=== PATIENT | female | born 1940 | race Caucasian/White ===

== ENCOUNTER → 2023-11-06 08:23 | Outpatient (REF) | payer MEDICARE, OTHER, SELFPAY ==
[2023-11-06 09:23] LABS: Hematocrit 37.8 % (37.0-47.0); Hemoglobin 12.5 g/dL (12.0-16.0); Mean Corp Hgb Conc. 33.1 g/dL (33.0-37.0); Mean Corpuscular Hgb 31.6 pg (27.0-31.0); Mean Corpuscular Volume 95.5 fL (81.0-99.0); Mean Platelet Volume 9.8 fL (7.4-10.4); Platelet Count 235 10^3/uL (130-400); Red Blood Cell Count 3.96 10^6/uL (4.20-5.40); Red Cell Dist. Width 12.1 % (11.5-14.5)
[2023-11-06 10:00] LABS: Blood Urea Nitrogen 14 mg/dl (7-17); Calcium 9.7 mg/dl (8.4-10.2); Carbon Dioxide 27 mmol/L (22-30); Chloride 105 mmol/L (98-107); Glucose 88 mg/dl (70-99); Potassium 4.8 mmol/L (3.5-5.1); Sodium 135 mmol/L (135-145); eGFR > 60.00
== END ==
LOC: SDSPAT 08:23
PROVIDERS: ATTENDING PHYSICIAN Surgery; FAMILY PHYSICIAN Family Medicine
DX: Z01.818 Encounter for other preprocedural examination (principal)
CPT/HCPCS: 36415; 80048; 85027; 93005

== ENCOUNTER 2023-11-18 06:19 | Day surgery (SDC) | payer MEDICARE, OTHER, SELFPAY ==
[2023-11-06 08:42] VITALS: BMI 24.9
[2023-11-18] VITALS (10 sets, daily range): BP systolic 108–129; BP diastolic 54–69; BMI 24.9
--- NOTE | 2023-11-18 07:12 | HP.FOC2 ---
Focused History & Physical
Chief Complaint
HPI:
Chief Complaint: Right inguinal hernia
HPI / Indication for Planned Procedure: Patient is an 83-year-old female with a known history of a right inguinal hernia which she has been following expectantly. It is a bit more protuberant and slightly larger than previously. She now has a
awareness of the hernia being present on a daily basis and occasional discomfort.
Relevant Past Medical History: Other (Hypercholesterolemia, diverticulosis, colon polyps, benign left breast lump, hemorrhoids, herniated disc, M [employer])
Relevant Social History: Negative
Relevant Family History: Negative
Relevant Past Surgical History: Positive for (Benign left breast biopsy, ROMMEL/BSO)
Review of Systems
Review of Pertinent Systems: All Systems Negative
Medication
See Medication form for detailed medications: Yes
Medication List (including Herbals & OTC):
Calcium 600 + D(3) 1 tab PO DAILY 11/13/23
alendronate 70 mg tablet 70 mg PO QWEEK 11/13/23
atorvastatin 10 mg tablet 10 mg PO DAILY 11/13/23
famotidine 20 mg tablet 20 mg PO DAILY 11/13/23
Medications Reviewed: Yes
Allergies and Reactions
Patient has Allergies: No
Noted Allergies and Reactions:
Allergy/AdvReac Type Severity Reaction Status Date / Time
No Known Allergies Allergy Verified 11/28/17 13:00
Pertinent Physical Exam
All Other Systems: Negative
Head/Neck: Normal
Lungs: Normal
Heart: Normal
Abdomen: Other (Reducible right inguinal hernia)
Extremities: Normal
Neurological: Normal
Diagnosis / Assessment
Patient is an 83-year-old female presenting for scheduled operative correction symptomatic right inguinal hernia
Plan / Procedure
Robotic assisted laparoscopic repair of right inguinal hernia with mesh
Anesthesia/Sedation to be done by Anesthesia Provider: Yes
[2023-11-18] MEDS: NORMOSOL-R/PLASMALYTE-A 1000 IV (09:30)
[2023-11-18] MEDS: TYLENOL 1000 MG PO (09:31)
--- NOTE | 2023-11-18 11:00 | W.SUR.PREOP ---
Pre-Operative Surgical Note
-
I have examined this patient prior to the performance of the scheduled procedure.
The patient's condition is unchanged from the time of the current History and
Physical and the patient is able to undergo the scheduled procedure.
--- NOTE | 2023-11-18 13:37 | W.IMMPOSTOP ---
Addendum entered and electronically signed by Roman Young MD 11/18/23 13:51:
#[id number]
Original Note:
Surgical Immed Post Op Note
-
Primary Surgeon: Hector
Assisting Surgeon: Jorge L Gatica PGY 1
Pre-op Diagnosis: RIH
Post-op Diagnosis: RIH; incidental cyst of the appendix
Procedure Performed: RAL JIGNESH RIH repair with mesh; 3d max large mid wt; RAL appendectomy
Anesthesia Type: GETA + 0.25% Marcaine
Specimen / Cultures: Appendix
Estimated Blood Loss: 6 mL
Complications: None immediate
Operative Findings: Right indirect inguinal hernia. Transabdominal preperitoneal repair; 3D max large mid weight mesh. Incidental appendiceal cystic mass noted within mid appendix. Appendectomy completed without disruption of appendix after
inguinal herniorrhaphy and specimen sent for routine pathology. Base taken flush with the cecum utilizing a 0 PDS Endoloop and inverting stump with 2-0 Vicryl.
[2023-11-18] MEDS: DILAUDID 0.25 MG IV (14:33)
== END 2023-11-18 15:30 | disposition home or self-care (01) ==
LOC: SDS 06:19
PROVIDERS: ATTENDING PHYSICIAN Surgery
DX: K40.90 Unilateral inguinal hernia, without obstruction or gangrene, not specified as recurrent (principal); D37.3 Neoplasm of uncertain behavior of appendix
CPT/HCPCS: 49650; 88304; C1781

== ENCOUNTER 2023-11-20 02:20 | Inpatient (IN) | payer MEDICARE, OTHER, SELFPAY ==
[2023-11-19 21:20] VITALS: BP 160/90
[2023-11-19] MEDS: NSS 1000 IV (21:41)
[2023-11-19] MEDS: ZOFRAN 4 MG IV (21:46)
--- NOTE | 2023-11-19 21:46 | ED.GENMED ---
History of Present Illness
General
Chief Complaint: Abdominal Symptoms
Time Seen by Provider: 11/19/23 21:33
Travel History
Have you had any contact with someone who has COVID-19?: No
Do you have any symptoms of coronavirus? Fever > 100 degrees, chills, cough, shortness of breath, sore throat, loss of taste or smell, muscle aches, or headache?: No
History of Present Illness
History of Present Illness:
82-year-old female presents to the emergency department for evaluation of intractable vomiting developing this morning. She underwent routine outpatient hernia repair laparoscopically subsequently went appendectomy during the same procedure. She
was discharged yesterday in stable addition. States she has had previous reactions to general anesthesia with delayed vomiting in the past. Denies any abdominal pain
Review of Systems
Review of Systems
Allergies reviewed?: Yes
All Other Systems: ROS reviewed and negative except as documented in HPI and ROS
Phy Exam
Physical Exam
Physical Exam:
GEN: Well appearing, NAD, WDWN
HEENT: Oral mucosa moist, no scleral icterus
Cardiac: Regular rate
Lung: No respiratory distress, no tachypnea
Abdomen: Soft, nontender. Well-approximated laparoscopic incisional sites without dehiscence or discharge
MSK: No gross deformity or injuries
Skin: Good color, no pallor or jaundice, no rashes
Neuro: AO x3, moves all extremities freely
Psych: Calm, cooperative
Course
Orders/Labs/Results
Orders:
Orders
11/19/23 21:37
0.9% Sodium Chloride 1000 ml [Nss] 1,000 ml IV BOLUS
Ondansetron Injectable [Zofran] 4 mg IV NOW STA
11/19/23 21:40
Complete Blood Count/No Diff Urgent
Comprehensive Metabolic Panel Urgent
Serum Osmolality Urgent
Comment: ADD ON
11/19/23 22:16
Add On- LAB Urgent
Tests Added?: serum osmolality
11/19/23 22:56
Metoclopramide [Reglan] 10 mg .ROUTE .STK-MED ONE
11/19/23 22:58
Metoclopramide [Reglan] 10 mg IV NOW STA
11/19/23 23:14
Diphenhydramine [Benadryl] 50 mg .ROUTE .STK-MED ONE
11/19/23 23:15
Diphenhydramine [Benadryl] 12.5 mg IV NOW STA
11/19/23 23:32
Osmolality, Random Urine Urgent
Date Specimen was Collected: 11/19/23
Time Specimen was Collected: 23:30
Urinalysis Reflex To Culture Urgent
Date Specimen was Collected: 11/19/23
Time Specimen was Collected: 23:30
Urine Microscopic Reflex Cult Urgent
Urine Sodium Urgent
Date Specimen was Collected: 11/19/23
Time Specimen was Collected: 23:30
Abnormal Lab Results
11/19/23 11/19/23
21:40 23:32
WBC 12.0 H 10^3/uL
(4.8-10.8)
RBC 3.79 L 10^6/uL
(4.20-5.40)
Hct 33.0 L %
(37.0-47.0)
MCH 31.7 H pg
(27.0-31.0)
Sodium 120 L mmol/L
(135-145)
Chloride 91 L mmol/L
(98-107)
Carbon Dioxide 20 L mmol/L
(22-30)
Glucose 125 H mg/dl
(70-99)
Serum Osmolality 256 L mOsm/kg
(275-300)
Urine Ketones 1+ A
(Negative)
Ur Occult Blood Reflex Trace A
(Negative)
Urine RBC 3-6 A /HPF
(0-2)
Urine Bacteria (Reflex) Few A
(Negative)
11/19/23 21:40
11/19/23 21:40
Vital Signs
Initial and Last Documented VS:
Initial Vital Signs
Temp Pulse Resp BP Pulse Ox
98.1 F 84 20 160/90 97
11/19/23 21:20 11/19/23 21:20 11/19/23 21:20 11/19/23 21:20 11/19/23 21:20
Last Documented Vital Signs
Temp Pulse Resp BP Pulse Ox
98.1 F 75 16 160/81 98
11/19/23 21:20 11/19/23 23:15 11/19/23 23:15 11/19/23 23:00 11/19/23 23:15
MDM/Problems Addressed
MDM/Problems Addressed:
Patient noted to be complete hyponatremic which is likely hypovolemic on the basis of vomiting. She does not drink alcohol there is no history suggestive polydipsia. Prior sodium from preoperative screening labs was 135. I discussed the patient's
labs with nephrology who requested we start 3% saline infusion at 25 cc, every 4 hours BMPs, with a goal sodium of 123 to 124 by AM. Patient will be admitted to the hospital service
*Critical Care Note
Total Time (30-74mins, 75-104mins- exclusive of procedures): Not Applicable
ED Attending Note
-
Portions of this chart may have been created with voice recognition software.� Occasional wrong word or��sound alike� substitutions may have occurred due to the inherent limitations of voice recognition software.
Discharge Plan
Departure
Patient Disposition: Admit
Date of Disposition: 11/20/23
Time of Disposition: 00:26
Admit to: Med/Surg
Presentation/result/management discussed w/ accepting MD/DO: Hospitalist
Discharge Problem:
Acute hyponatremia
Prescriptions:
No Action
atorvastatin 10 mg Tablet
10 mg PO DAILY
alendronate 70 mg Tablet
70 mg PO TU
famotidine 20 mg Tablet
20 mg PO BID
calcium carbonate-vitamin D3 [Calcium 600 + D(3)] 600 mg-10 mcg (400 unit) Tablet
1 tab PO DAILY Qty: 0
tramadol 50 mg tablet
50 mg PO Q6HPRN PRN (Reason: severe pain/breakthrough pain) Qty: 10 0RF
acetaminophen [Tylenol Extra Strength] 500 mg tablet
1,000 mg PO Q6HPRN PRN (Reason: mild pain) Qty: 1 0RF
ibuprofen 200 mg tablet
400 mg PO Q6HPRN PRN (Reason: moderate pain) Qty: 1 0RF
polyethylene glycol 3350 [Miralax] 17 gram/dose powder
4 g PO DAILY PRN (Reason: Constipation) Qty: 119 0RF
Rx Instructions:
start a laxative such as MIRALAX on day 2 after surgery if no bowel movement yet as long as no nausea/vomiting and passing gas
Referrals:
Court Ann MD [Family Provider] -
Interventions
Interventions:
*Risk Screen - Suicide Last Done: 11/19/23 21:20
*General Assessment Last Done: 11/19/23 21:20
*Neglect/Abuse Screening Last Done: 11/19/23 21:20
ED- Fall Risk Assessment Last Done: 11/19/23 21:20
*ED COVID-19 Vaccine History Last Done: 11/19/23 21:20
LQ-Krjatj-Vezoidkzwc Assessment Last Done: 11/19/23 21:36
ED-Skin Assessment Last Done: 11/19/23 21:36
Discharge Date and Time
Print Language: LEBANESE
[2023-11-19 21:54] LABS: Mean Corp Hgb Conc. 36.4 g/dL (33.0-37.0); Mean Corpuscular Hgb 31.7 pg (27.0-31.0); Mean Corpuscular Volume 87.1 fL (81.0-99.0); Mean Platelet Volume 9.3 fL (7.4-10.4); Platelet Count 215 10^3/uL (130-400); Red Blood Cell Count 3.79 10^6/uL (4.20-5.40); Red Cell Dist. Width 11.7 % (11.5-14.5)
[2023-11-19 22:13] LABS: ALT (SGPT) 16 U/L (0-35); AST (SGOT) 32 U/L (14-36); Albumin 4.3 g/dl (3.5-5.0); Alkaline Phosphatase 73 U/L (38-126); Blood Urea Nitrogen 13 mg/dl (7-17); Calcium 8.9 mg/dl (8.4-10.2); Carbon Dioxide 20 mmol/L (22-30); Chloride 91 mmol/L (98-107); Glucose 125 mg/dl (70-99); Potassium 4.1 mmol/L (3.5-5.1); Sodium 120 mmol/L (135-145); Total Bilirubin 0.9 mg/dl (0.2-1.3); Total Protein 6.8 g/dl (6.3-8.2); eGFR > 60.00
[2023-11-19 22:24] VITALS: BP 164/89
[2023-11-19 22:34] LABS: Osmolality Serum 256 mOsm/kg (275-300)
[2023-11-19 22:37] VITALS: BMI 24.1
[2023-11-19] MEDS: REGLAN 10 MG IV (22:58)
[2023-11-19 23:00] VITALS: BP 160/81
[2023-11-19] MEDS: BENADRYL 12.5 MG IV (23:20)
[2023-11-19 23:48] LABS: Urine Albumin Negative (Neg - Trace); Urine Bilirubin Negative (Negative); Urine Character Clear (Clear); Urine Color Yellow; Urine Glucose Negative (Negative); Urine Ketone 1+ (Negative); Urine Leukocyte Negative (Negative); Urine Nitrite Negative (Negative); Urine Occult Blood Trace (Negative); Urine Urobilinogen Negative (Neg - 1+)
[2023-11-20] VITALS (10 sets, daily range): BP systolic 125–168; BP diastolic 67–90; BMI 22.3
[2023-11-20 00:04] LABS: Urine Bacteria Few (Negative); Urine Squamous Cell 0-2 /LPF (Few); Urine White Cell 0-2 /HPF (0-5)
[2023-11-20 00:16] LABS: Osmolality Urine 379 mOsm/kg (300-900)
[2023-11-20 00:26] LABS: Urine Sodium 135 mmol/L (30-90)
[2023-11-20] MEDS: SODIUM CHLORIDE 3% 250 IV (01:25)
--- NOTE | 2023-11-20 01:27 | HPS.HSE ---
Family Physician
-
Family Physician: Court Ann
Chief Complaint
-
vomiting
History of Present Illness
Ms. Kavitha Petersen is a 83 yo woman with hx HLD, s/p routine right inguinal hernia repair 11/17 who presents to the ER with intractable vomiting. Patient reports that she has had previous reactions to general anesthesia with delayed vomiting in the
past (with cataracts) but wasn't this severe.
She woke up feeling ok and had some Cheerios. She then had nausea and didn't eat more. Patient vomited at least 6-8 times at home. She states the Zofran didn't help her in the ER but Reglan and Benadryl did. Currently without abdominal pain.
Overall feeling better. No fevers/chills. No chest pain. No shortness of breath. Surgical incisions healing well. No LE swelling. No dizziness or lightheadedness. She denies passing gas.
Medical History
Past Medical History
Past Medical History: Reports Hypercholesterolemia
Past Surgical History: Reports Other (right inguinal herinia repair 11/18/23)
Social History
Tobacco: Non-smoker
Alcohol: Occasional
Family History
Family History: Not pertinent
Allergies / Home Medications
Allergies reflects when Allergies were last updated in [facility].
Home Medications with original date entered in [facility]
Allergy/Medication List:
Allergies
Allergy/AdvReac Type Severity Reaction Status Date / Time
No Known Allergies Allergy Verified 11/18/23 09:13
Home Medications
alendronate 70 mg tablet 70 mg PO TU 11/13/23
atorvastatin 10 mg tablet 10 mg PO DAILY 11/13/23
calcium carbonate 600 mg-vitamin D3 10 mcg (400 unit) tablet (Calcium 600 + D(3)) 1 tab PO DAILY ##0 11/13/23
famotidine 20 mg tablet 20 mg PO BID 11/13/23
acetaminophen 500 mg tablet (Tylenol Extra Strength) 1,000 mg (2 x 500 mg) PO Q6HPRN PRN mild pain #1 tab 11/18/23
ibuprofen 200 mg tablet 400 mg (2 x 200 mg) PO Q6HPRN PRN moderate pain #1 tab 11/18/23
polyethylene glycol 3350 17 gram/dose oral powder (Miralax) 4 g PO DAILY PRN Constipation #119 grams 11/18/23
tramadol 50 mg tablet 50 mg PO Q6HPRN PRN severe pain/breakthrough pain #10 tabs 11/18/23
Review of Systems
-
History Source: Patient
A 12 point ROS was completed and negative except as noted: Yes
Physical Exam
Vital Signs
Vital Signs
Temp Pulse Resp BP Pulse Ox
98.1 F 75 16 160/81 98
11/19/23 21:20 11/19/23 23:15 11/19/23 23:15 11/19/23 23:00 11/19/23 23:15
Physical Exam
General: No Apparent Distress and Conversant
HEENT: PERRLA
Respiratory: Clear; No Wheezes
Cardiac: S1/S2 and Regular Rhythm
GI: Soft, Non Tender and Other (laparascopic incisions c/d/i)
Musculoskeletal: No Edema
Skin: Warm and Dry; No Rash
Neuro: AO x 3
Psych: Calm
Laboratory Results
-
11/19/23 21:40
11/19/23 21:40
Laboratory Results
Total Bilirubin 0.9 mg/dl (0.2-1.3) 11/19/23 21:40
AST 32 U/L (14-36) 11/19/23 21:40
ALT 16 U/L (0-35) 11/19/23 21:40
Alkaline Phosphatase 73 U/L (38-126) 11/19/23 21:40
Data Reviewed
-
Diagnostic Radiology: Report Reviewed by me
Lab Data: Labs Reviewed by me
Impression/Plan
-
Ms. Kavitha Petersen is a 83 yo woman with hx HLD, s/p routine right inguinal hernia repair 11/17 who presents to the ER with intractable vomiting. Patient reports that she has had previous reactions to general anesthesia with delayed vomiting in the
past.
Triage VS: T 98.1, P 84, RR 20, BP 160/90, SpO2 97%
LABS: Na 120, K+ 4.1, CO2 20, Cr 0.6, Glucose 125, Serum osmolality 256, T. Bili 0.9, AST 32, ALT 16, Alk Phos 73, Albumin 4.3
MAR: IVF bolus, Benadryl, Reglan and Zofran; 3% NaCl @ 25ml/hr
Acute Hyponatremia
Hypovolemic Hyponatremia
-admit to telemetry
-ER discussed case with Dr. Ferrari and NaCl3% started at 25ml/hr with goal Na 123-124 tomorrow AM as possible Na was low prior to episode
-s/p 1L bolus in ER
-continue 3%
-BMP q 4 hours
-formal renal consult tomorrow
-urine studies with elevated urine sodium
Vomiting s/p general anesthesia
s/p right inguinal hernia repair
-will obtain obstruction series now
-try compazine PRN nausea (stated zofran didn't work and reported feeling figety after reglan)
-clear liquid diet for now
HLD
-MANAGER OF QUALITY lipitor
DVT PPx lovenox subQ
FULL CODE
[2023-11-20 03:29] LABS: Blood Urea Nitrogen 12 mg/dl (7-17); Calcium 8.7 mg/dl (8.4-10.2); Carbon Dioxide 24 mmol/L (22-30); Chloride 99 mmol/L (98-107); Estimated Creatinine Clearance 57 ml/min; Glucose 109 mg/dl (70-99); Potassium 4.9 mmol/L (3.5-5.1); Sodium 128 mmol/L (135-145); eGFR > 60.00
--- NOTE | 2023-11-20 03:44 | W.PN.UPDATE ---
Update Note
Progress Note Update
repeat sodium 128. 3% off. Case discussed with Dr. Ferrari who recommends hypotonic fluids D5W @ 80. Plan to repeat BMP as scheduled at 6AM.
[2023-11-20] MEDS: D5W 1000 IV (04:10)
[2023-11-20 07:34] LABS: % Basophils 0.2 % (0-2); % Eosinophils 0.1 % (0-6); % Immature Granulocytes 0.3 % (0-0.5); % Lymphocytes 19.9 % (20.5-51.1); % Neutrophils 67.5 % (42.2-75.2); Absolute Lymphocytes 1.8 10^3/uL (1.2-3.4); Absolute Monocytes 1.1 10^3/uL (0.1-0.6); Absolute Neutrophils 6.2 10^3/uL (1.4-6.5); Hematocrit 35.2 % (37.0-47.0); Hemoglobin 12.3 g/dL (12.0-16.0); Mean Corp Hgb Conc. 34.9 g/dL (33.0-37.0); Mean Corpuscular Hgb 31.6 pg (27.0-31.0); Mean Corpuscular Volume 90.5 fL (81.0-99.0); Mean Platelet Volume 9.5 fL (7.4-10.4); Nucleated Red Blood Cells % 0 %; Platelet Count 236 10^3/uL (130-400); Red Blood Cell Count 3.89 10^6/uL (4.20-5.40); Red Cell Dist. Width 11.9 % (11.5-14.5); White Blood Cell Count 9.2 10^3/uL (4.8-10.8)
[2023-11-20 07:43] LABS: Urine Sodium 22 mmol/L (30-90)
[2023-11-20 07:55] LABS: Osmolality Urine 82 mOsm/kg (300-900)
[2023-11-20 08:00] LABS: Blood Urea Nitrogen 12 mg/dl (7-17); Calcium 9.4 mg/dl (8.4-10.2); Carbon Dioxide 25 mmol/L (22-30); Chloride 102 mmol/L (98-107); Estimated Creatinine Clearance 57 ml/min; Glucose 110 mg/dl (70-99); Magnesium 2.3 mg/dl (1.6-2.3); Potassium 4.5 mmol/L (3.5-5.1); Sodium 134 mmol/L (135-145); eGFR > 60.00
[2023-11-20 08:16] LABS: Cortisol, Random 8.9 ug/dl
[2023-11-20] MEDS: LIPITOR 10 MG PO (08:17)
[2023-11-20] MEDS: PEPCID 20 MG PO ×2 (08:17→19:51)
--- NOTE | 2023-11-20 09:06 | W.PN.HOSP.TC ---
Today's Communication/Plan
-
Monitor sodium
Diet as tolerated
Nephrology consult
Assessment / Plan
Assessment / Plan
Gen-AAOx3, NAD
HEENT-NC, AT, anicteric, clear oral mm
Neck-supple
CV-reg, no M, +S1/S2
Lungs-clear B/L
Abd-soft, NT, ND, laparoscopic incisions without drainage
Ext-no edema
Musculoskeletal-no cyanosis, clubbing
Skin-warm and dry
Neuro-grossly non-focal
Psych-calm, cooperative
Intractable vomiting -differential diagnosis includes delayed effects of anesthesia versus hyponatremia. Symptoms resolved. Clear liquid diet this morning, advance as tolerated.
Severe hyponatremia -improved. Sodium 134. Currently on D5W IV. Nephrology consulted. Denies history of hyponatremia. Trigger for hyponatremia possibly related to postoperative pain, intractable nausea and vomiting, etc.
Right inguinal hernia -repaired on November 17 laparoscopically. Stable. I informed Dr. Young that she is here.
Hyperlipidemia
Osteoporosis
Full code
Anticipated Discharge: Within 24 hours
Subjective/Interval History
-
Date of Service: November 20, 2023
Patient seen and examined. Feels much better. Denies nausea, pain. No complaints.
Objective Data
-
Labs:
Laboratory Results
11/19/23 11/20/23 11/20/23
21:40 02:59 06:31
WBC 12.0 H 9.2
Hgb 12.0 12.3
Hct 33.0 L 35.2 L
Plt Count 215 236
Sodium 120 L 128 L D 134 L
Potassium 4.1 4.9 4.5
Chloride 91 L 99 102
Carbon Dioxide 20 L 24 25
BUN 13 12 12
Creatinine 0.6 0.7 0.7
Glucose 125 H 109 H 110 H
Calcium 8.9 8.7 9.4
Total Bilirubin 0.9
AST 32
ALT 16
Alkaline Phosphatase 73
11/20/23 11/20/23 11/20/23
10:00 14:00 18:00
WBC
Hgb
Hct
Plt Count
Sodium Pending Pending Pending
Potassium Pending Pending Pending
Chloride Pending Pending Pending
Carbon Dioxide Pending Pending Pending
BUN Pending Pending Pending
Creatinine Pending Pending Pending
Glucose Pending Pending Pending
Calcium Pending Pending Pending
Total Bilirubin
AST
ALT
Alkaline Phosphatase
Vital Signs:
Vital Signs
Temp Pulse Resp BP Pulse Ox
98.0 F 70 16 137/90 98
11/20/23 07:25 11/20/23 07:25 11/20/23 07:25 11/20/23 07:25 11/20/23 07:25
I&O
11/19/23 11/20/23 11/21/23
06:59 06:59 06:59
Intake Total 120 / 120
Output Total 1900 / 1900
Balance -1780 / -1780
Review of Systems
-
History Source: Patient
All other systems: Reviewed and negative
--- NOTE | 2023-11-20 09:45 | W.PN.UPDATE ---
Update Note
Progress Note Update
pt seen in follow up. notified of pts admission this AM for PONV/hyponatremia
reports initially felt well at time of discharge on 11/17 and until noonish yesterday. nausea started followed by intractable vomiting
post op pain mild and not getter worse; no narcotics needed yesterday
has passed flatus and had small BM yesterday
does not feel distended.
AFVSS
ABD: soft, nondistended, mild TTP RLQ no R/R/G, no post op seromas palpable/hematoma/ecchymosis
incision sites with glue dressings
appreciate hospitalist/nephrology assistance with care for post op N/V and hyponatremia
examination otherwise unremarkable from post op abdominal recovery standpoint (no clinical/radiographic signs of SBO/ileus, early infectious or iatrogenic surgical complications from RAL RIH repair and appendectomy on 11/17)
continue supportive care, no role at this time for further GI/ABD post op imaging
--- NOTE | 2023-11-20 10:16 | W.CON.NEPH ---
Consultation
-
Date/Time Consultation Requested: 11/20/2023 7 AM
Date/Time Consultation Performed: 11/20/2023 1015 AM
Requesting Provider: Piper
Performing Provider: Glory
Reason for Consultation: Hyponatremia
Medical History
-
Chief Complaint: Hyponatremia
History of Present Illness:
Ms. Kavitha Petersen is a 83 yo woman with hx HLD, maintained on chronic statin therapy, s/p routine right inguinal hernia repair 11/17 who presents to the ER with intractable vomiting. Patient reports that she has had previous reactions to general
anesthesia with delayed vomiting in the past (with cataracts) but wasn't this severe. She woke up feeling ok and had some Cheerios. She then had nausea and didn't eat more. Patient vomited at least 6-8 times at home. She states the Zofran didn't
help her in the ER but Reglan and Benadryl did. Currently without abdominal pain. Overall feeling better. No fevers/chills. No chest pain. No shortness of breath. Surgical incisions healing well. No LE swelling. No dizziness or
lightheadedness. She denies passing gas. On presentation to the hospital her serum sodium level was 120 off its previous baseline of 135 noted on 11/06/2023 and nephrology was urgently consulted. 3% saline was administered overnight with noted
rapid rise of sodium down to 134.
Past Medical History
Hyperlipidemia
Inguinal hernia repair October 2023
Social History
Tobacco: Non-Smoker
Alcohol: Occasional
Family History
No chronic kidney disease
Family History: Not Pertinent
Allergies / Home Medications
Allergy/AdvReac Type Severity Reaction Status Date / Time
No Known Allergies Allergy Verified 11/18/23 09:13
�Medication �Instructions �Recorded �Confirmed �Type
alendronate 70 mg tablet 70 mg PO TU osteoporosis 11/13/23 11/19/23 History
atorvastatin 10 mg tablet 10 mg PO DAILY High Cholesterol 11/13/23 11/19/23 History
calcium carbonate 600 mg-vitamin 1 tab PO DAILY Supplement ##0 11/13/23 11/19/23 History
D3 10 mcg (400 unit) tablet
(Calcium 600 + D(3))
famotidine 20 mg tablet 20 mg PO BID Gastrointestinal Issue 11/13/23 11/19/23 History
acetaminophen 500 mg tablet 1,000 mg (2 x 500 mg) PO Q6HPRN 11/18/23 11/19/23 Rx
(Tylenol Extra Strength) PRN mild pain #1 tab
ibuprofen 200 mg tablet 400 mg (2 x 200 mg) PO Q6HPRN PRN 11/18/23 11/19/23 Rx
moderate pain #1 tab
polyethylene glycol 3350 17 4 g PO DAILY PRN Constipation #119 11/18/23 11/19/23 Rx
gram/dose oral powder (Miralax) grams
tramadol 50 mg tablet 50 mg PO Q6HPRN PRN severe 11/18/23 11/19/23 Rx
pain/breakthrough pain #10 tabs
Review of Systems
-
History Source: Patient
All other systems: Negative unless noted
Constitutional: No Symptoms
EENT: No Symptoms
Respiratory: No Symptoms
Cardiac: No Symptoms
Abdomen/GI: Nausea and Vomiting
: No Symptoms
Musculoskeletal: No Symptoms
Skin: No Symptoms
Neurological: No Symptoms
Endocrine: No Symptoms
Hematologic/Lymphatic: No Symptoms
Physical Exam
Vital Signs
Vital Signs
Temp Pulse Resp BP Pulse Ox
98.0 F 70 16 137/90 98
11/20/23 07:25 11/20/23 07:25 11/20/23 07:25 11/20/23 07:25 11/20/23 07:25
Lab Results
WBC 9.2 10^3/uL (4.8-10.8) 11/20/23 06:31
RBC 3.89 10^6/uL (4.20-5.40) L 11/20/23 06:31
Hgb 12.3 g/dL (12.0-16.0) 11/20/23 06:31
Hct 35.2 % (37.0-47.0) L 11/20/23 06:31
Plt Count 236 10^3/uL (130-400) 11/20/23 06:31
eGFR > 60.00 11/20/23 06:31
Albumin 4.3 g/dl (3.5-5.0) 11/19/23 21:40
Physical Exam
General: AOx3, Nontoxic , NAD
HEENT: PERRL, EOMI, Anicteric, Conjunctivae Clear, Ear/Nose Intact, Hearing Normal, Oropharynx Clear/Moist, Dentition Intact, Facial Symmetry, Neck Supple, Neck: Trachea Midline, No JVD and No Thyromegaly, no Bruits
Respiratory: Clear to auscultation bilaterally with normal lung excursion
Cardiac: S1/S2 and Regular Rate/Rhythm
Breast: Deferred by me
Abdomen: Soft, Nontender, Nondistended, Normal Bowel Sounds and No Hepatosplenomegaly
Rectal: Deferred by Provider
Genito-urinary: No Costovertebral Tenderness
Extremities: No Clubbing, No Cyanosis and No Edema
Skin: No Rash or open lesions
Neuro: Nonfocal/Grossly Intact, CN II-XII (Intact) and Strength (Musculoskeletal exam 5 out of 5 both upper and lower extremities)
Hematologic/Lymphatic: No Cervical Lymphadenopathy, No Submandibular Lymphadenopathy and No Supraclavicular Lymphadenopathy
Psych: Mood/afflect pleasant, Insight/judgement good and Appropriate
Vascular: plus 2 pedal and radial pulses
Data Reviewed
-
Radiology: Image Personally Visualized and interpreted (Chest x-ray without congestive heart failure or pneumonic process)
Labs: Labs Reviewed by me (Basic metabolic panel urine osmolality urine sodium)
Old Records: Reviewed (Reviewed old records 11/06/2023 sodium 135)
Assessment/Plan
-
Impression:
Hyponatremia
Intractable nausea vomiting
Status post right inguinal hernia repair on 11/18/2023
Dyslipidemia
Plan:
-Urine osmolality is not consistent with SIADH as it is only 82
-Urine sodium was not consistent with volume depletion
-3% saline was administered and noted significant rapid rise from 120-134
-Hypotonic IV fluids provided, D5W at 80 cc/h with every 4 hour electrolytes ordered due to rapid correction of serum sodium
-3% saline discontinued
-I believe patient risk for central pontine myelinolysis is less given relative acuity of hyponatremia, serum sodium was 135 on 11/06/23
--- NOTE | 2023-11-20 11:24 | CM ---
Met with patient at bedside; initial assessment completed
s/p appendectomy; post op nausea and vomiting
Pharmacy verified: [facility], [address], [place]
Patient reported that she lives with her in a [place] (home has a basement); 1 step to enter; 10-12 steps down to basement
PLOF: Patient reported that she is independent with ambulation, stairs, and ADLs; Drives
SNF/Rehab/Home Health utilization history; None
Transportation: will provide ride home
Plan: discharge to home later today; no DC needs
[2023-11-20 13:28] LABS: Blood Urea Nitrogen 11 mg/dl (7-17); Calcium 9.2 mg/dl (8.4-10.2); Carbon Dioxide 20 mmol/L (22-30); Chloride 100 mmol/L (98-107); Estimated Creatinine Clearance 57 ml/min; Glucose 138 mg/dl (70-99); Potassium 3.8 mmol/L (3.5-5.1); Sodium 131 mmol/L (135-145); eGFR > 60.00
[2023-11-20 14:38] LABS: Blood Urea Nitrogen 11 mg/dl (7-17); Calcium 9.1 mg/dl (8.4-10.2); Carbon Dioxide 24 mmol/L (22-30); Chloride 99 mmol/L (98-107); Estimated Creatinine Clearance 57 ml/min; Glucose 107 mg/dl (70-99); Potassium 4.4 mmol/L (3.5-5.1); Sodium 129 mmol/L (135-145); eGFR > 60.00
[2023-11-20 18:27] LABS: Blood Urea Nitrogen 10 mg/dl (7-17); Calcium 9.5 mg/dl (8.4-10.2); Carbon Dioxide 23 mmol/L (22-30); Chloride 101 mmol/L (98-107); Estimated Creatinine Clearance 50 ml/min; Glucose 112 mg/dl (70-99); Potassium 4.1 mmol/L (3.5-5.1); Sodium 131 mmol/L (135-145); eGFR > 60.00
[2023-11-21 03:12] VITALS: BP 132/67
[2023-11-21 05:17] VITALS: BMI 21.7
[2023-11-21 06:54] LABS: Blood Urea Nitrogen 11 mg/dl (7-17); Calcium 8.9 mg/dl (8.4-10.2); Carbon Dioxide 26 mmol/L (22-30); Chloride 102 mmol/L (98-107); Estimated Creatinine Clearance 50 ml/min; Glucose 87 mg/dl (70-99); Potassium 4.1 mmol/L (3.5-5.1); Sodium 131 mmol/L (135-145); eGFR > 60.00
[2023-11-21 08:11] VITALS: BP 125/71
--- NOTE | 2023-11-21 08:48 | W.PN.HOSP.TC ---
Today's Communication/Plan
-
Discharge
Assessment / Plan
Assessment / Plan
Gen-AAOx3, NAD
HEENT-NC, AT, anicteric, clear oral mm
Neck-supple
CV-reg, no M, +S1/S2
Lungs-clear B/L
Abd-soft, NT, ND, laparoscopic incisions without drainage
Ext-no edema
Musculoskeletal-no cyanosis, clubbing
Skin-warm and dry
Neuro-grossly non-focal
Psych-calm, cooperative
Intractable vomiting -differential diagnosis includes delayed effects of anesthesia versus hyponatremia. Symptoms resolved. Clear liquid diet this morning, advance as tolerated.
Severe hyponatremia -improved. Sodium now stable, 131. Denies history of hyponatremia. Trigger for hyponatremia possibly related to postoperative pain, intractable nausea and vomiting, etc. Does not use NSAIDs on a regular basis.
Right inguinal hernia -repaired on November 17 laparoscopically. Stable. Follow-up with Dr. Young after discharge.
Hyperlipidemia
Osteoporosis
Full code
Dispo -stable for discharge home today. BMP next week with primary care doctor. Mild fluid restriction on discharge. Discussed with nephrology.
31 minutes spent in discharge process.
Anticipated Discharge: Today
Subjective/Interval History
-
Date of Service: November 21, 2023
Patient seen and examined. No complaints.
Objective Data
-
Labs:
Laboratory Results
11/21/23
05:23
Sodium 131 L
Potassium 4.1
Chloride 102
Carbon Dioxide 26
BUN 11
Creatinine 0.8
Glucose 87
Calcium 8.9
Vital Signs:
Vital Signs
Temp Pulse Resp BP Pulse Ox
97.9 F 71 18 125/71 100
11/21/23 08:11 11/21/23 08:11 11/21/23 08:11 11/21/23 08:11 11/21/23 08:11
I&O
11/20/23 11/21/23 11/22/23
06:59 06:59 06:59
Intake Total 120 / 120 840 / 840
Output Total 1900 / 1900
Balance -1780 / -1780 840 / 840
Review of Systems
-
History Source: Patient
All other systems: Reviewed and negative
--- NOTE | 2023-11-21 08:54 | W.DS.TRANS ---
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
-
Discharge Instructions:
Discharge Diagnosis/Procedures Tractable vomiting, hyponatremia
Diet Low Cholesterol,Low Fat,Other diet
Additional Diets 50 ounce daily fluid restriction
Activity As tolerated
Driving Restrictions As prior to admission
Bathing Restrictions None
Blood Work BMP next week with your primary care doctor
Instructions:
Stand-Alone Forms:
Changes to Home Medications: No
Discharge Medications:
DC Medications w/original date entered in [facility]
alendronate 70 mg tablet 70 mg PO TU osteoporosis 11/13/23
atorvastatin 10 mg tablet 10 mg PO DAILY High Cholesterol 11/13/23
calcium carbonate 600 mg-vitamin D3 10 mcg (400 unit) tablet (Calcium 600 + D(3)) 1 tab PO DAILY Supplement ##0 11/13/23
famotidine 20 mg tablet 20 mg PO BID Gastrointestinal Issue 11/13/23
acetaminophen 500 mg tablet (Tylenol Extra Strength) 1,000 mg (2 x 500 mg) PO Q6HPRN PRN mild pain #1 tab 11/18/23
polyethylene glycol 3350 17 gram/dose oral powder (Miralax) 4 g PO DAILY PRN Constipation #119 grams 11/18/23
tramadol 50 mg tablet 50 mg PO Q6HPRN PRN severe pain/breakthrough pain #10 tabs 11/18/23
Home Medication Changes
Pending Results: No
[2023-11-21] MEDS: PEPCID PO (09:02)
[2023-11-21] MEDS: LIPITOR PO (09:02)
--- NOTE | 2023-11-21 09:14 | CM ---
Plan: discharge to home today; no needs
will provide transport home
== END 2023-11-21 10:22 | disposition home or self-care (01) | DRG 392 ==
LOC: 4 EAST ACU 02:20
PROVIDERS: Physician Assistant; ADMITTING PHYSICIAN Student in an Organized Health Care Education/Training Program; ATTENDING PHYSICIAN Hospitalist; EMERGENCY PHYSICIAN Emergency Medicine; FAMILY PHYSICIAN Family Medicine; OTHER PHYSICIAN Specialist
DX: K91.0 Vomiting following gastrointestinal surgery (principal); E87.1 Hypo-osmolality and hyponatremia; E78.00 Pure hypercholesterolemia, unspecified; M81.0 Age-related osteoporosis without current pathological fracture; Y83.4 Other reconstructive surgery as the cause of abnormal reaction of the patient, or of later complication, without mention of misadventure at the time of the procedure; Y92.9 Unspecified place or not applicable
CPT/HCPCS: 74022; 80048; 80053; 81003; 81015; 82533; 83735; 83930; 83935; 84300; 84443; 85025; 85027; 96361; 96374; 96375; 99285